=== PATIENT | male | born 1995 | race Caucasian/White ===

== ENCOUNTER 2021-09-21 20:45 | Emergency (ER) | payer MEDICAID, SELFPAY ==
[2021-09-21 20:48] VITALS: BP 180/90; PULSE 102; O2SAT 96
[2021-09-21 20:51] VITALS: RESP 16; BMI 27.1
--- NOTE | 2021-09-21 21:02 | ED_ITS ---
HPI - Alcohol General Chief Complaint: ETOH/Substance Use Stated Complaint: ETOH Time Seen by Provider: 09/21/21 21:02 Source: patient Mode of arrival: EMS Limitations: no limitations History of Present Illness MD complaint: alcohol intoxication Last drink: Just prior to admission Chronic alcohol use: Yes Previous visits for alcohol intoxication: No Recent trauma: No Associated symptoms: denies other symptoms Treatments prior to arrival: none Related Data Allergies Allergy/AdvReac Type Severity Reaction Status Date / Time No Known Allergies Allergy Unverified 01/03/20 19:46 [No Known Allergies*] Review of Systems Review of Systems: Constitutional : No Fever, No Chills ENT/Mouth : No Ear Pain, No Nasal Congestion, No sore throat Eyes: No Eye Pain, No Swelling, No Redness Cardiovascular : No Chest Pain, No SOB Respiratory : No Cough, No Sputum, No Dyspnea Gastrointestinal : No Nausea, No Vomiting, No Diarrhea, No Hematochezia, No Melena Genitourinary : No Dysuria, No Urinary Frequency, No Hematuria Musculoskeletal : No Myalgias Skin : No Skin Lesions, No rash Neuro : No Weakness, No Numbness, No Paresthesias, No Dizziness, No Headache Psych : no Anxiety, no Depression, no SI/HI All other systems reviewed and are negative [facility] Past Medical History Attestation statement: The following information was validated with the patient. Medical History Alcoholism Orthostatic hypotension Social History Social History (Updated 09/21/21 @ 21:22 by Park Sena DO) Alcohol intake: current Alcohol intake frequency: 3 or more drinks per day Alcohol type: hard liquor Patient Tobacco Use Status: Current everyday Tobacco user Advance Directives: No Advance Directives Information Provided: No Physical Exam ED Vital Signs: Vital Signs - 24 hr 09/21/21 20:51 09/21/21 21:20 Temperature 98.6 F Pulse Rate 76 Respiratory Rate 16 18 Blood Pressure 147/88 H Pulse Oximetry 95 BMI result Body Mass Index 27.1 Appearance: Alert. Oriented X3. No acute distress. ETOH odor Eyes: Pupils equal, round and reactive to light. ENT: Pharynx normal. Atraumatic Neck: Normal inspection. Neck supple. CVS: Normal heart rate and rhythm. Pulses normal. Respiratory: No respiratory distress. Breath sounds normal. Abdomen: Soft and non-tender. Skin: Skin warm and dry. Normal skin color. Normal skin turgor. Extremities: No lower extremity edema. No calf ttp Neuro: Oriented X 3. No motor deficit. No sensory deficit. Course Course Course Narrative: GCS 15, was given resources by recovery coaches but he is not ready for detox, steady gait has sober ride home MDM - Alcohol MDM Narrative Medical decision making narrative: 26 yo male with hx of ETOH abuse has never gone to rehab before no SI, no trauma, reports no complaints states his mom made him come because he needs help. At this time he doesn't express that he wants detox but he agrees to talk to the recovery coaches about rehab. I do not feel I can section him at this time as he has no SI and this I have no prior history in our system of multiple visits for ETOH in the past. Discharge Plan Discharge Clinical Impression: Alcoholic intoxication Qualifiers: Complication of substance-induced condition: uncomplicated Qualified Code(s): F10.920 - Alcohol use, unspecified with intoxication, uncomplicated Patient Disposition: Home, Self-Care Instructions: Alcohol Intoxication (ED) Additional Instructions: return to ED for any worsening symptoms or concerns you spoke to our recovery coaches and were offered resources on detox and rehab. we are here when you are ready to go to detox. return at any time.
[2021-09-21 21:20] VITALS: BP 147/88; PULSE 76; RESP 18; TEMP 37; O2SAT 95
--- NOTE | 2021-09-21 21:57 | MHC.RECOVSUP ---
? Reason for consult:Recovery Support o Current location:[facility] ? o Identified substance use concern:Alcohol ? - Withdrawal - Seeking ATS (detox) - Support ? ?Intervention: o Community resources provided o Harm reduction discussion ? Plan: o Referral to [facility] ? Additional information:?Patient consultation with Doctor Sena before point of entry. Patient is a 26 year old single male that is struggling with AUD. Patient was unaware why he was brought to the ED although after speaking with me he realized that his mother gave him an ultimatum of either detox or homelessness. Patient resides with his mother in [place] and works at [employer]. Vince realizes he cannot cope with life without drinking at least a shot of 100 proof alcohol every hour on the job and then consumes at least a sleeve of nips a day. We were able to review his options, harm reduction strategies and gave him community resources which included a list of area detox, community centers, AA meeting list and information on Recovery Coaching.
== END 2021-09-21 22:20 | disposition home or self-care (01) ==
PROVIDERS: Emergency Provider Emergency Medicine
DX: F10.220 Alcohol dependence with intoxication, uncomplicated (principal); Y90.9 Presence of alcohol in blood, level not specified; F17.200 Nicotine dependence, unspecified, uncomplicated
CPT/HCPCS: 99283; 99284